=== PATIENT | male | born 1960 | race Caucasian/White ===

== ENCOUNTER → 2016-11-08 | Day surgery (SDC) | payer OTHER ==
[2016-11-04 11:57] VITALS: BMI 33.7
[~2016-11-08] MED LIST: LIDOCAINE 2% INJ 20 MG/ML (20 ML MDV) ONE; MIDAZOLAM 2 MG/2 ML VIAL IV ONE; MIDAZOLAM 2 MG/2 ML VIAL ONE; SODIUM CHLORIDE 0.9% 1,000 ML IV SCH; ceFAZolin 2 GM in SODIUM CHLORIDE 0.9% 100 ML IVPB ONE
[2016-11-08 11:58] VITALS: RESP 18
--- NOTE | 2016-11-08 14:21 | P.PCN ---
Preoperative Diagnosis: Loop monitor implant Primary physicians: Jigsawyer: Dr. Deluca Indication: Sick sinus syndrome, atrial fibrillation Patient was brought to the EP lab in a fasting state. Written informed consent was obtained prior to the procedure. The left pectoral area was prepped and draped per protocol. Intravenous antibiotic was administered preoperatively. A subcutaneous Loop monitor was implanted successfully and the wound was closed per protocol. The device was programmed to detect significant fina- arrhythmic and tachy-arrhythmic events, per protocol. Device and programming details: A. fib and sick sinus syndrome programming Patient underwent EP procedure under conscious sedation/moderate sedation, monitoring of the level of consciousness and physiologic parameters including but not limited to vital signs and oxygenation. Patient tolerated the procedure well without any acute complications. 0.5 mg Versed, 2 g Kefzol Start time: 1354 Stop time: 1404 Postoperative Diagnosis: Procedure(s) Performed: Implants: Condition: stable Disposition: same day Indications for Procedure: Operative Findings: Description of Procedure:
[2016-11-08 14:58] VITALS: BP 142/72; PULSE 45; TEMP 97.8
--- NOTE | 2016-11-08 15:03 | LTR ---
November 08, 2016 RE: Primo Forrest Dear Dr. Magallanes; I had the pleasure of seeing Mr. Primo Forrest in electrophysiology followup. As you know, Mr. Forrest has sick sinus syndrome as well as atrial fibrillation and has bradycardia at rest but minimal symptoms. He underwent a loop monitor implantation so I could get an assessment of his atrial fibrillation burden as well as watch for any significant bradycardia in the future. He is not on any AV alicia blocking drugs at this time and I will continue to follow him with you and myself. Thank you for entrusting me with the care of your patient. Warm regards. Sincerely, EZRA ERICKSON MD
== END | disposition home or self-care (01) ==
LOC: CATHEP 11:33
PROVIDERS: ATTEND Internal Medicine Clinical Cardiac Electrophysiology
DX: I48.0 Paroxysmal atrial fibrillation (principal); I49.5 Sick sinus syndrome; I10 Essential (primary) hypertension; I51.7 Cardiomegaly; E78.5 Hyperlipidemia, unspecified; I42.0 Dilated cardiomyopathy; Z82.49 Family history of ischemic heart disease and other diseases of the circulatory system; Z79.01 Long term (current) use of anticoagulants; Z79.899 Other long term (current) drug therapy; Z87.891 Personal history of nicotine dependence
CPT/HCPCS: 33282; 99152; C1764; J2250; J0690

== ENCOUNTER → 2016-12-10 | Outpatient (CLI) | payer OTHER ==
[2016-12-10 09:34] LABS: CH 31.3; CHCM 35.1; HCT 43.4 % (39.0-53.0); HDW 2.88; MCH 30.7 pg (25.0-35.0); MCHC 34.5 g/dL (31.0-37.0); MCV 89.1 fL (80.0-100.0); Mean Platelet Volume 6.8; RBC 4.87 m/uL (4.30-5.90); RDW 14.1 % (11.5-15.5)
[2016-12-10 09:37] LABS: Appearance,Urine Clear (Clear); Bilirubin,Urine Negative (Negative); Glucose,Urine (UA) Negative (Negative); Ketones,Urine Negative (Negative); Leukocyte Esterase,Urine Negative (Negative); Nitrite,Urine Negative (Negative); PH, Urine 5.5 (5.0-8.0); Protein,Urine Negative (Negative); UA Billing (MACRO vs. MICRO) CHEM; Urobilinogen,Urine <2.0 mg/dL (<2.0)
[2016-12-10 09:49] LABS: ALT 44 U/L (21-72); AST 24 U/L (17-59); Alkaline Phosphatase 81 U/L (38-126); Anion Gap 8 mmol/L; Blood Urea Nitrogen 17 mg/dL (9-20); Calcium 9.4 mg/dL (8.4-10.2); Carbon Dioxide 28 mmol/L (22-30); Chloride 107 mmol/L (98-107); Cholesterol 174 mg/dL (<200); Glucose 95 mg/dL (74-99); HDL Cholesterol 51 mg/dL (40-60); Non-African American GFR(MDRD) >60 (>60 ml/min/1.73 sqM); Potassium 4.8 mmol/L (3.5-5.1); Sodium 143 mmol/L (137-145); Total Protein 7.3 g/dL (6.3-8.2); Triglycerides 188 mg/dL (<150)
[2016-12-10 10:19] LABS: Prostate Specific Antigen 0.98 ng/mL (0.00-4.00)
[2016-12-10 10:27] LABS: Hemoglobin A1C 5.8 % (4.2-6.1)
== END | disposition home or self-care (01) ==
LOC: LABWHC1 09:16
PROVIDERS: ATTEND Family Medicine
DX: Z00.00 Encounter for general adult medical examination without abnormal findings (principal)
CPT/HCPCS: 36415; 80053; 80061; 81003; 83036; 84153; 84443; 85027

== ENCOUNTER → 2018-12-13 | Outpatient (CLI) | payer OTHER ==
[2018-12-13 17:45] LABS: African American GFR (CKD) 107.2 (60.0-200.0); Anion Gap 5.5 mmol/L (4.00-12.00); BUN/Creat Ratio 23.33 Ratio (12.00-20.00); Calcium 9.1 mg/dL (8.7-10.3); Carbon Dioxide 27.5 mmol/L (21.6-31.8); Potassium 4.3 mmol/L (3.5-5.5)
== END | disposition home or self-care (01) ==
LOC: LABWHC1 09:29
PROVIDERS: ATTEND Family Medicine
DX: I10 Essential (primary) hypertension (principal); E78.5 Hyperlipidemia, unspecified
CPT/HCPCS: 36415; 80048; 84450; 84460

== ENCOUNTER → 2019-01-17 | Outpatient (CLI) | payer OTHER ==
[2019-01-17 10:58] LABS: Appearance,Urine Clear (Clear); Bilirubin,Urine Negative (Negative); Blood,Urine Negative (Negative); Color,Urine Yellow; Glucose,Urine (UA) Negative (Negative); Ketones,Urine Negative (Negative); Leukocyte Esterase,Urine Negative (Negative); Nitrite,Urine Negative (Negative); PH, Urine 5.5 (5.0-8.0); Protein,Urine Negative (Negative); Specific Gravity,Urine 1.018 (1.001-1.035); Urobilinogen,Urine <2.0 mg/dL (<2.0)
[2019-01-17 11:36] LABS: HCT 44.9 % (39.0-53.0); HGB 14.9 gm/dL (13.0-17.5); MCH 30.7 pg (25.0-35.0); MCHC 33.2 g/dL (31.0-37.0); MCV 92.4 fL (80.0-100.0); Mean Platelet Volume 6.5; Platelet Count 218 k/uL (150-450); RBC 4.86 m/uL (4.30-5.90); RDW 13.4 % (11.5-15.5)
[2019-01-17 15:56] LABS: African American GFR (CKD) 94.4 (60.0-200.0); Albumin 4.1 g/dL (3.80-4.90); Albumin/Globulin Ratio 1.78 (1.60-3.17); Anion Gap 11.5 mmol/L (4.00-12.00); Calcium 8.7 mg/dL (8.7-10.3); Carbon Dioxide 23.5 mmol/L (21.6-31.8); Globulin 2.3 g/dL (1.6-3.3); LDL Cholesterol,Calculated 86.2 mg/dL (0.0-131.0); Potassium 4.4 mmol/L (3.5-5.5); Total Bilirubin 0.9 mg/dL (0.3-1.2); Total Protein 6.4 g/dL (6.2-8.2); VLDL Calculation 16.8 mg/dL (5.00-40.00)
[2019-01-17 17:29] LABS: Hemoglobin A1C 5.6 % (4.0-6.0)
== END | disposition home or self-care (01) ==
LOC: LABWHC1 10:10
PROVIDERS: ATTEND Family Medicine
DX: Z00.00 Encounter for general adult medical examination without abnormal findings (principal); E66.9 Obesity, unspecified
CPT/HCPCS: 36415; 80053; 80061; 81003; 83036; 84153; 84439; 84443; 85027

== ENCOUNTER 2022-06-28 08:23 | Inpatient (IN) | payer OTHER ==
[2022-06-28 16:26] LABS: Basophils % (A) 0 %; Eosinophils # (A) 0.1 k/uL (0-0.7); Eosinophils % (A) 1 %; HCT 46.4 % (39.0-53.0); HGB 15.3 gm/dL (13.0-17.5); Lymphocytes # (A) 2.6 k/uL (1.0-4.8); Lymphocytes % (A) 26 %; MCH 31.7 pg (25.0-35.0); Mean Platelet Volume 7.7; Monocytes # (A) 0.7 k/uL (0-1.0); Monocytes % (A) 7 %; Neutrophils # (A) 6.5 k/uL (1.3-7.7); Neutrophils % (A) 64 %; Platelet Count 240 k/uL (150-450); RBC 4.83 m/uL (4.30-5.90); RDW 14.5 % (11.5-15.5); WBC 10.3 k/uL (3.8-10.6)
[2022-06-28 16:35] LABS: Calcium 9.2 mg/dL (8.4-10.2); Magnesium 2.2 mg/dL (1.6-2.3); Potassium 4.4 mmol/L (3.5-5.1)
[2022-06-28] MEDS: RIVAROXABAN 20 MG TAB PO SCH (21:21)
[2022-06-28] MEDS: ATORVASTATIN 40 MG TAB PO SCH (21:21)
[2022-06-28] MEDS: SACUBITRIL/VALSARTAN 24 MG-26 MG TABLET PO SCH (21:21)
[2022-06-29] MEDS: ATORVASTATIN 40 MG TAB PO SCH (07:51)
[2022-06-29] MEDS: SACUBITRIL/VALSARTAN 24 MG-26 MG TABLET PO SCH ×2 (07:51→21:26)
[2022-06-29 08:04] LABS: African American GFR (CKD) 78 (>60 ml/min/1.73 sqM); Anion Gap 2 mmol/L; Blood Urea Nitrogen 22 mg/dL (9-20); Calcium 8.1 mg/dL (8.4-10.2); Carbon Dioxide 33 mmol/L (22-30); Chloride 103 mmol/L (98-107); Glucose 104 mg/dL (74-99); Non-African American GFR(CKD) 67 (>60 ml/min/1.73 sqM); Potassium 3.5 mmol/L (3.5-5.1); Sodium 138 mmol/L (137-145)
[2022-06-29] MEDS: FUROSEMIDE 20 MG TAB PO SCH (08:51)
[2022-06-29] MEDS: SPIRONOLACTONE 25 MG TAB PO SCH (08:52)
[2022-06-29] MEDS ORDERED: FUROSEMIDE 40 MG TAB PO SCH (09:00)
[2022-06-29] MEDS ORDERED: METOPROLOL SUCCINATE (ER) 25 MG TAB.ER.24H PO SCH (12:00)
[2022-06-29] MEDS: SODIUM CHLORIDE 0.9% 1,000 ML IV SCH (13:35)
[2022-06-29] MEDS ORDERED: SODIUM CHLORIDE 0.9% 500 ML 500 ML IV ONE (13:56)
[2022-06-29] MEDS ORDERED: HEPARIN SODIUM,PORCINE 5,000 UNIT/ML 1 ML VIAL ONE (15:37)
[2022-06-29] MEDS ORDERED: PHENYLEPHRINE-0.9% NACL SYG 1,000 MCG/10 ML SYRINGE ONE (15:37)
[2022-06-29] MEDS ORDERED: PROPOFOL 10 MG/ML 20 ML VIAL IV ONE (15:37)
[2022-06-29] MEDS ORDERED: LIDOCAINE 2% INJ 20 MG/ML (2 ML VIAL) ONE (15:37)
--- NOTE | 2022-06-29 16:18 | P.PN ---
Subjective Progress note on D1 Tuesday Patient was admitted with increasing shortness of breath orthopnea PND He was started on ENTRESTO 24/26 mg by mouth twice daily along with beta blockers Lasix was held today Labs Normal white count 10,000, hemoglobin 15, platelet count 240,000 Sodium 141, potassium 4.4 BUN 28 and creatinine 1.14 Magnesium 2.2 On examination was still JVD in the sitting position Breath sounds reduced bilaterally with crackles at the bases Heart sounds S1 and S2 are soft no clinical S3 gallop Bilateral lower extremity edema Impression Biventricular failure class III, acute systolic failure Severe LV dysfunction, systolic Severe RV dysfunction, systolic Persistent atrial fibrillation with RVR Hypertension on lisinopril previously Lisinopril has been on hold over the weekend Patient admitted for heart failure management and indecision of ENTRESTO Plan Continue ENTRESTO Hold Lasix for today upon incision of ENTRESTO, continue beta blockers BMP and magnesium and TSH tomorrow Continue xarelto Continue atorvastatin Objective - Vital Signs Vital signs: Vital Signs Temp 98 F 06/29/22 13:57 Pulse 94 06/29/22 16:08 Resp 16 06/29/22 16:08 BP 109/72 06/29/22 16:08 Pulse Ox 97 06/29/22 16:08 FiO2 Intake & Output 06/28/22 06/29/22 06/29/22 18:59 06:59 18:59 Intake Total 180 50 Balance 180 50 Weight 112.829 kg 113.6 kg 113.6 kg Intake: IV 50 Oral 180 Other: Voiding Method Toilet # Voids 1 1 - Labs CBC & Chem 7: 06/28/22 16:00 06/29/22 06:18 Labs: Abnormal Lab Results - Last 24 Hours (Table) 06/28/22 06/29/22 Range/Units 16:00 06:18 Carbon Dioxide 33 H (22-30) mmol/L BUN 28 H 22 H (9-20) mg/dL Glucose 104 H (74-99) mg/dL Calcium 8.1 L (8.4-10.2) mg/dL
--- NOTE | 2022-06-29 16:26 | P.PN ---
Progress Note - Text This morning patient is doing better He feels his orthopnea had improved and he was able to lie flat in bed no comfortably after receiving 2 doses of ENTRESTO His blood pressure has been stable No chest discomfort no dizziness lightheadedness He ambulates to the bathroom without any problems His lower extremity edema persists On examination, but pressure 112/78 mmHg pulse rate elevated irregular Mild JVD upon sitting Breath sounds are reduced bilaterally, crackles at the bases Normal S1 normal S2 no murmurs Bilateral lower extremity edema access Labs are reviewed After receiving 2 doses of ENTRESTO his potassium is 3.5, bicarb 33 BUN 22 and creatinine 1.16 Magnesium 2.0 and TSH 1.13, normal Impression Severe biventricular cardiomyopathy with acute systolic dysfunction acute exacerbation of CHF Previously his LV function was normal Now his LV function is severely reduced at less than 20% with biventricular enlargement Persistent atrial fibrillation with RVR, normal TSH History of hypertension Suggest Acute systolic heart failure likely a combination of A. fib with RVR along with recent Coumadin infection No angina like symptoms Hypertension Acute congestive heart failure improving on ENTRESTO Plan Continue ENTRESTO 24/26 mg by mouth twice daily Continue beta blockers at a higher dose of 50 mg daily Add spironolactone 25 mg by mouth daily Continue Xarelto 20 mg by mouth daily Continue atorvastatin Lasix 20 mg by mouth daily External defibrillator for the next 4 months for primary prevention of sudden cardiac given the severity and the QT of heart failure and biventricular LV dysfunction Electrical cardioversion later today Continue xarelto Maximize beta blockers
--- NOTE | 2022-06-29 16:32 | P.EPPROC ---
- EP Procedure Note Electrophysiology Procedure Note: Diagnosis Persistent A. fib with RVR Acute LV and RV systolic dysfunction with acute heart failure Recent COVID infection Details Successful electrical cardioversion with 200 J biphasic shock to sinus rhythm Patient also received 5000 units IV heparin prior to the procedure He is also on xarelto Plan Continue beta blockers a higher dose Continue ENTRESTO Continue diuretics Continue Xarelto In case of recurrence, consider dofetilide In my opinion his acute systolic heart failure with biventricular severe LV dysfunction is a culmination of recent conversion of paroxysmal atrial fibrillation to persistent A. fib with RVR followed by Covid infection In the future we will evaluate his coronary arteries too
[2022-06-29] MEDS ORDERED: METOPROLOL SUCCINATE (ER) 25 MG TAB.ER.24H PO STA (16:51)
[2022-06-29] MEDS: RIVAROXABAN 20 MG TAB PO SCH (21:26)
[2022-06-30] MEDS: SPIRONOLACTONE 25 MG TAB PO SCH (08:55)
[2022-06-30] MEDS: ATORVASTATIN 40 MG TAB PO SCH (08:55)
[2022-06-30] MEDS: FUROSEMIDE 20 MG TAB PO SCH (08:55)
[2022-06-30] MEDS: SACUBITRIL/VALSARTAN 24 MG-26 MG TABLET PO SCH ×2 (08:56→21:42)
[2022-06-30 09:10] LABS: Calcium 8.7 mg/dL (8.4-10.2); Potassium 4.4 mmol/L (3.5-5.1)
[2022-06-30] MEDS ORDERED: METOPROLOL SUCCINATE (ER) 50 MG TAB.ER.24H PO SCH (11:00)
[2022-06-30] MEDS: SODIUM CHLORIDE 0.9% 1,000 ML IV SCH (11:27)
[2022-06-30] MEDS: METOPROLOL SUCCINATE (ER) 50 MG TAB.ER.24H PO SCH (13:58)
[2022-06-30] MEDS: RIVAROXABAN 20 MG TAB PO SCH (21:42)
[2022-06-30] MEDS ORDERED: LORATADINE-PSEUDOEPH 5-120 MG 1 EACH TAB.ER.12H PO PRN (21:46)
[2022-07-01 08:15] LABS: Calcium 8.6 mg/dL (8.4-10.2); Magnesium 2.1 mg/dL (1.6-2.3); Potassium 4.4 mmol/L (3.5-5.1)
[2022-07-01] MEDS ORDERED: LORATADINE 10 MG TAB PO SCH (09:00)
[2022-07-01] MEDS: SPIRONOLACTONE 25 MG TAB PO SCH (09:09)
[2022-07-01] MEDS: METOPROLOL SUCCINATE (ER) 50 MG TAB.ER.24H PO SCH (09:09)
[2022-07-01] MEDS: SACUBITRIL/VALSARTAN 24 MG-26 MG TABLET PO SCH (09:09)
[2022-07-01] MEDS: ATORVASTATIN 40 MG TAB PO SCH (09:09)
[2022-07-01 12:36] VITALS: BP 122/81; PULSE 76; RESP 18; TEMP 97.5
[2022-07-01] MEDS ORDERED: FUROSEMIDE 10 MG/ML 4 ML VIAL IV STA (13:24)
--- NOTE | 2022-07-01 13:28 | P.PN ---
Progress Note - Text Patient was evaluated on the in the morning as well as later on in the evening He is doing well from a cardiac standpoint His orthopnea and PND of improved significantly He still has lower extremity edema No chest discomfort or dizziness no lightheadedness I started him on a higher dose of ENTRESTO, 2 tablets of 24/26 mg and he yumiko erated well through the day In the evening he received his second higher dose of ENTRESTO and also tolerated well without he problems No dizziness no shortness of breath He remains in sinus rhythm heart rate 7 the 70s he is tolerating metoprolol Heart rates in the 70s, blood pressure 180 78 mmHg normal respirations We mild JVD Bilateral lower extremity edema Clear lungs no rhonchi no crackles Heart sounds are sounds are normal no S3 gallop Impression severe biventricular failure with a dilated LV and RV Severe LV dysfunction ejection fraction less than 20% Admitted for heart failure management and afterload reduction therapy initiated with ENTRESTO The dose of ENTRESTO." The beta eli dose has been doubled He is on spironolactone Lasix is on hold pulmonary watch his BUN/creatinine on ENTRESTO Plan continue ENTRESTO BMP tomorrow Awaiting external ICD vest Discharge planning for tomorrow as long as his electrolytes are normal and he tolerates ENTRESTO
[2022-07-01] MEDS ORDERED: SACUBITRIL/VALSARTAN 24 MG-26 MG TABLET PO SCH (21:00)
== END 2022-07-01 16:44 | disposition home or self-care (01) | DRG 291 ==
LOC: 3SCARD 08:23
PROVIDERS: ADMIT Internal Medicine Clinical Cardiac Electrophysiology; ATTEND Internal Medicine Clinical Cardiac Electrophysiology
PROC: 5A2204Z Restoration of Cardiac Rhythm, Single (ICD-10-PCS; principal; 2022-06-29 14:00)
DX: I11.0 Hypertensive heart disease with heart failure (principal); I50.23 Acute on chronic systolic (congestive) heart failure; I48.19 Other persistent atrial fibrillation; I42.8 Other cardiomyopathies; I50.82 Biventricular heart failure; I08.1 Rheumatic disorders of both mitral and tricuspid valves; E78.5 Hyperlipidemia, unspecified; R00.1 Bradycardia, unspecified; Z86.16 Personal history of COVID-19; F17.210 Nicotine dependence, cigarettes, uncomplicated; Z71.6 Tobacco abuse counseling
CPT/HCPCS: 80048; 83735; 84443; 85025; 92960

== ENCOUNTER 2022-09-21 05:44 | Day surgery (SDC) | payer OTHER ==
[2022-09-15 11:41] VITALS: BMI 33.7
[2022-09-21] MEDS ORDERED: NITROGLYCERIN SL TABS 0.4 MG TAB SUBLINGUAL PRN (06:05)
[2022-09-21] MEDS ORDERED: ALPRAZolam 0.25 MG TAB PO PRN (06:05)
[2022-09-21] MEDS ORDERED: ASPIRIN 325 MG TAB PO STA (06:05)
[2022-09-21] MEDS ORDERED: HEPARIN SODIUM,PORCINE 2,500 UNIT in SODIUM CHLORIDE 0.9% 250 ML IRRIGATION PRN (06:05)
[2022-09-21] MEDS ORDERED: ALPRAZolam 0.5 MG TAB PO PRN (06:05)
[2022-09-21] MEDS ORDERED: HEPARIN SODIUM,PORCINE 10,000 UNIT in SODIUM CHLORIDE 0.9% 1,000 ML IRRIGATION PRN (06:05)
[2022-09-21] MEDS ORDERED: SODIUM CHLORIDE 0.9% 1,000 ML in EMPTY BAG 1 BAG IV SCH (06:05)
[2022-09-21] MEDS ORDERED: ATORVASTATIN 80 MG TAB PO STA (06:05)
[2022-09-21 06:41] LABS: Basophils % (A) 0 %; Eosinophils # (A) 0.2 k/uL (0-0.7); Eosinophils % (A) 2 %; HCT 41.2 % (39.0-53.0); HGB 14.3 gm/dL (13.0-17.5); Lymphocytes # (A) 2.4 k/uL (1.0-4.8); Lymphocytes % (A) 31 %; MCH 31.6 pg (25.0-35.0); MCHC 34.8 g/dL (31.0-37.0); Mean Platelet Volume 6.9; Monocytes # (A) 0.5 k/uL (0-1.0); Monocytes % (A) 7 %; Neutrophils # (A) 4.4 k/uL (1.3-7.7); Neutrophils % (A) 57 %; Platelet Count 230 k/uL (150-450); RBC 4.52 m/uL (4.30-5.90); RDW 14.4 % (11.5-15.5); WBC 7.7 k/uL (3.8-10.6)
[2022-09-21 06:48] VITALS: RESP 16; TEMP 98.7
[2022-09-21 06:55] LABS: African American GFR (CKD) >90 (>60 ml/min/1.73 sqM); Anion Gap 7 mmol/L; Blood Urea Nitrogen 23 mg/dL (9-20); Calcium 9.7 mg/dL (8.4-10.2); Carbon Dioxide 25 mmol/L (22-30); Chloride 106 mmol/L (98-107); Glucose 89 mg/dL (74-99); Non-African American GFR(CKD) 89 (>60 ml/min/1.73 sqM); Potassium 4.8 mmol/L (3.5-5.1); Sodium 138 mmol/L (137-145)
[2022-09-21] MEDS ORDERED: fentaNYL (PF) 50 MCG/1 ML VIAL IV ONE (08:11)
[2022-09-21] MEDS ORDERED: MIDAZOLAM 2 MG/2 ML VIAL IV ONE (08:11)
[2022-09-21] MEDS ORDERED: LIDOCAINE 1% INJ 10MG/ML (5 ML VIAL-PF) SQ ONE (08:12)
[2022-09-21] MEDS ORDERED: VERAPAMIL SYRINGE (5 MG/10 ML) INTRAARTER ONE (08:14)
[2022-09-21] MEDS ORDERED: HEPARIN SODIUM 1,000 UN/ML (10ML VL) IV ONE (08:16)
--- NOTE | 2022-09-21 08:28 | P.CARDCATH ---
Description of Procedure: PROCEDURES PERFORMED: Left heart catheterization, bilateral coronary angiography INDICATION: Cardiomyopathy CONSENT:I have discussed the risks, benefits and alternative therapies for the above-mentioned procedure and for both sedation/analgesia as well as necessary blood product administration, if indicated, as they pertain to this patient. The patient has indicated understanding and acceptance of the risks and procedures discussed. PROCEDURE: After the risks, benefits and alternatives of the above mentioned procedure explained in detail with the patient, informed consent was obtained. Patient was taken to the catheterization lab and prepped and draped in usual fashion. 1% lidocaine was used to anesthetize the right radial artery. A 6- Polish sheath was placed in the right radial artery using modified Seldinger technique. Left coronary angiography was performed with a 5-Polish JL 3.5 catheter and right coronary angiography was performed with a 5-Polish JR5 catheter in various views. A 5-Polish FR5 catheter was inserted into the left ventricle and pressure measurements were obtained. The right radial sheath was removed and a TR band was placed with hemostasis achieved. The patient tolerated the procedure well. Patient was transported back to the post catheterization holding area in stable condition. Conscious Sedation: Patient was monitored under the direct supervision of myself for conscious sedation using Versed and fentanyl for a total duration of 13 minutes HEMODYNAMICS: Aorta: 116/54 LV: 117/4, LVEDP 10 SELECTIVE CORONARY ARTERIOGRAPHY: LEFT MAIN: The left main is a large caliber vessel which trifurcates into the LAD, ramus and circumflex. There is no significant stenosis. LEFT ANTERIOR DESCENDING CORONARY ARTERY: LAD is a large caliber vessel which wraps around to the apex. There are mild luminal irregularities of the proximal and mid LAD with 10-20% stenosis. RAMUS INTERMEDIUS: The ramus is a small caliber vessel with no significant stenosis. LEFT CIRCUMFLEX CORONARY ARTERY: Left circumflex is a moderate caliber vessel without significant stenosis. RIGHT CORONARY ARTERY: The right coronary artery is a large caliber vessel which gives off a PDA and PLV branch and is the dominant vessel. There is no significant stenosis. FINAL IMPRESSION: 1. Relatively normal coronary arteries other than mild luminal irregularities of the LAD. 2. Normal left sided filling pressures PLAN: 1. Aggressive risk factor modification per most recent ACC/AHA guidelines. 2. Follow-up in the office in 1-2 weeks.
[2022-09-21] MEDS ORDERED: IOPAMIDOL-370 100ML BTL INJ ONE (08:35)
[2022-09-21 10:07] VITALS: BP 104/56; PULSE 50
== END 2022-09-21 11:28 | disposition home or self-care (01) ==
LOC: CATHCVL 05:44
PROVIDERS: ATTEND Internal Medicine
DX: I42.0 Dilated cardiomyopathy (principal); I10 Essential (primary) hypertension; E78.5 Hyperlipidemia, unspecified; F17.210 Nicotine dependence, cigarettes, uncomplicated; Z82.49 Family history of ischemic heart disease and other diseases of the circulatory system; Z79.899 Other long term (current) drug therapy
CPT/HCPCS: 93458; 80048; 85025; C1769; C1894; J2250; J2001; J1644; Q9967; J3010

== ENCOUNTER 2022-10-25 08:07 | Day surgery (SDC) | payer OTHER ==
[~2022-10-25 08:07] MED LIST changes: +LACTATED RINGERS 1,000 ML IV SCH; -LIDOCAINE 2% INJ 20 MG/ML (20 ML MDV) ONE; -MIDAZOLAM 2 MG/2 ML VIAL IV ONE; -MIDAZOLAM 2 MG/2 ML VIAL ONE; +ceFAZolin 1 GM in SODIUM CHLORIDE 0.9% IRRIG BTL 250 ML IRRIGATION PRN; -ceFAZolin 2 GM in SODIUM CHLORIDE 0.9% 100 ML IVPB ONE
[2022-10-25] MEDS ORDERED: SODIUM CHLORIDE 0.9% 500 ML 500 ML IV ONE (08:19)
[2022-10-25 08:28] VITALS: RESP 16; TEMP 97.9
[2022-10-25 08:33] LABS: Basophils % (A) 0 %; Eosinophils # (A) 0.1 k/uL (0-0.7); Eosinophils % (A) 1 %; HCT 44.3 % (39.0-53.0); HGB 14.8 gm/dL (13.0-17.5); Lymphocytes # (A) 2.6 k/uL (1.0-4.8); Lymphocytes % (A) 34 %; MCHC 33.4 g/dL (31.0-37.0); MCV 95.8 fL (80.0-100.0); Mean Platelet Volume 6.8; Monocytes # (A) 0.4 k/uL (0-1.0); Monocytes % (A) 6 %; Neutrophils # (A) 4.2 k/uL (1.3-7.7); Neutrophils % (A) 56 %; Platelet Count 244 k/uL (150-450); RBC 4.63 m/uL (4.30-5.90); RDW 14.4 % (11.5-15.5); WBC 7.5 k/uL (3.8-10.6)
[2022-10-25 08:50] LABS: African American GFR (CKD) >90 (>60 ml/min/1.73 sqM); Anion Gap 8 mmol/L; Blood Urea Nitrogen 17 mg/dL (9-20); Calcium 9.3 mg/dL (8.4-10.2); Carbon Dioxide 29 mmol/L (22-30); Chloride 102 mmol/L (98-107); Glucose 104 mg/dL (74-99); Non-African American GFR(CKD) 85 (>60 ml/min/1.73 sqM); Potassium 4.5 mmol/L (3.5-5.1); Sodium 139 mmol/L (137-145)
[2022-10-25] MEDS ORDERED: MIDAZOLAM 2 MG/2 ML VIAL ONE (09:23)
[2022-10-25] MEDS ORDERED: PROPOFOL 10 MG/ML 20 ML VIAL IV ONE (09:23)
[2022-10-25] MEDS ORDERED: fentaNYL (PF) 50 MCG/ML 2 ML AMP ONE (09:23)
[2022-10-25] MEDS ORDERED: LIDOCAINE 1% INJ 10MG/ML (20 ML MDV) ONE (09:43)
[2022-10-25] MEDS ORDERED: IOPAMIDOL-250 100ML BTL IV ONE (09:48)
[2022-10-25] MEDS ORDERED: LIDOCAINE 1% INJ 10MG/ML (30 ML VIAL-PF) SQ ONE (10:20)
[2022-10-25] MEDS ORDERED: LIDOCAINE 1% INJ 10MG/ML (20 ML MDV) SQ ONE (10:22)
--- NOTE | 2022-10-25 11:53 | P.EPPROC ---
- EP Procedure Note Electrophysiology Procedure Note: Diagnosis Post viral Cardiomyopathy, chronic, nonischemic Normal coronary arteries, on maximally tolerated medications Systolic CHF class II on medical treatment, Sinus Bradycardia, on guideline directed therapy, limiting beta eli dose that is tolerated Procedure: Dual-chamber ICD implantation for management of risk of sudden cardiac /bradycardia/ to further maximize beta blockers therapy for severe nonischemic cardio myopathy Result: Dual chamber ICD implantation, Atrial lead: Medtronic 52 cm active fix lead in the right atrial appendage, P waves 1.4 mV, pacing threshold 1 V at 0.4 ms and pacing impedance 665 ohms RV ICD lead: Single coil lead screwed in the RV septum/W paced pattern noted, R waves 11.6 below, pacing threshold 0.8 V at 0.4 ms, pacing impedance 532 ohms Procedure details: Patient was brought to the EP lab in a fasting state. Written informed consent was obtained prior to the procedure. Options, pros and cons, benefits and risks and complications discussed with patient in detail prior to the procedure (shared decision making). Importance of continuing medical treatment emphasized. Alternatives discussed. Patient would like to proceed with dual-chamber ICD implant. Left upper extremity venogram performed. 15 mL IV dye injected in the left arm. Patent axillary/subclavian vein The left pectoral area was prepped and draped as a protocol. IV antibiotics administered 1% lidocaine was used for local anesthesia. A 4 cm incision was m mary lou parallel to the deltopectoral groove, about 1.5 cm medial to it. The incision was carried down to the level of the pectoralis muscle and the subfascial pocket was made. Hemostasis was assured. The axillary vein access was obtained. Appropriately sized into to see sheaths were placed. ICD lead implanted in the right ventricle and screwed in. ICD lead tested for threshold, sensing, impedances and tested with high output pacing for diaphragmatic stimulation Atrial lead placed in the right atrial appendage and tested for threshold, sensing, impedance, and tested with high output pacing. Phrenic nerve stimulation Lead secured to the underlying transverse muscle after removing sheaths . Pocket irrigated with antibiotic solution Leads connected to the biventricular ICD generator. Wound closed in 3 layers and dressed per protocol Defibrillation level testing performed Shock and T wave protocol to induce ventricular fibrillation. This was adequately and appropriately detected at least sensitivity 10 J shock failed. 20 J shock was successfully with a type II conversion A 25 J shock was successfully defibrillated the patient, without any dropouts, shocking impedance 67 ohms, charge time 4.9 seconds, delivered MG 25 J Dual ICD interrogated and programmed. Appropriate pacing parameters, antitachycardia therapies with antitachycardia pacing cardioversion defibrillations programmed. Patient tolerated the procedure well without any acute complications. See scanned device report in EMR for lead details Plan Further maximization of beta eli therapy
--- NOTE | 2022-10-25 12:08 | P.EPPROC ---
- EP Procedure Note Electrophysiology Procedure Note: Procedure: Loop explant under sedation and local anesthesia. Diagnosis: Loop monitor at [facility] Patient was brought to the EP lab in a fasting state. Written informed consent was obtained prior to the procedure. The subcutaneous device was successfully explanted under local anesthesia. Preoperative antibiotics were administered. The wound was closed in layers and dressed per protocol. Result: Successful loop monitor explantation.
[2022-10-25] MEDS ORDERED: ACETAMINOPHEN TAB 325 MG TAB PO PRN (12:16)
[2022-10-25] MEDS ORDERED: METOPROLOL SUCCINATE (ER) 50 MG TAB.ER.24H PO SCH (12:30)
--- NOTE | 2022-10-25 12:36 | P.EPPROC ---
- EP Procedure Note Electrophysiology Procedure Note: Discharge date note Patient underwent dual-chamber ICD implantation for severe nonischemic cardio myopathy that has not improved an ejection fraction is still severely reduced despite optimal medical treatment, maximally tolerated Now he has developed sinus bradycardia and he cannot increase the dose of beta blockers any further Today her dual-chamber ICD was implanted successfully His DFT is high at 25 J The subcutaneous loop monitor was explanted Plan Increase metoprolol succinate to 50 g by mouth daily and after 2-3 weeks further maximization of beta eli therapy since he has a dual-chamber ICD providing atrial pacing Continue all of the heart failure medications
[2022-10-25] MEDS ORDERED: ACETAMINOPHEN TAB 500 MG TAB PO ONE (13:23)
[2022-10-25 15:16] VITALS: BP 119/67; PULSE 67
--- NOTE | 2022-10-25 15:40 | XR ---
EXAMINATION TYPE: XR chest 1V portable DATE OF EXAM: 10/25/2022 Comparison: None Clinical History: 62-year-old male pacemaker, Lead placement check Findings: Left anterior chest wall AICD generator with right ventricular leads. No appreciable pneumothorax. He art borderline enlarged. Mild interstitial prominence may in part be technical due to large patient b eddie habitus. No milton consolidation or pleural effusion seen. Impression: Borderline cardiomegaly. Left anterior chest wall AICD generator with right atrial and right ventricu lar leads. No appreciable pneumothorax.
--- NOTE | 2022-10-25 18:46 | P.PRLE ---
RE: Primo Forrest Dear Dr. Elpidio Tillman underwent dual-chamber ICD implantation for severe nonischemic cardio myopathy that has not improved despite maximally tolerated heart failure medical therapy As expected, he had a high defibrillation threshold 25 J I will now increase the dose of beta blockers further to 50 mrem by mouth daily and hopefully further maximize this in the future by providing atrial pacing via the dual-chamber ICD Thank you for entrusting me with the care of the patient Warm regards Sincerely Kashmir Gonzalez
== END 2022-10-25 16:02 | disposition home or self-care (01) ==
LOC: CATHEP 08:07
PROVIDERS: ATTEND Internal Medicine Clinical Cardiac Electrophysiology
DX: I42.8 Other cardiomyopathies (principal); I11.0 Hypertensive heart disease with heart failure; I50.20 Unspecified systolic (congestive) heart failure; I48.0 Paroxysmal atrial fibrillation; E78.5 Hyperlipidemia, unspecified; Z79.01 Long term (current) use of anticoagulants; Z79.899 Other long term (current) drug therapy
CPT/HCPCS: 33249; 33286; 93641; 80048; 85025; 71045; C1769 ×3; C1721; C1892 ×2; C1898; C1895; J2250; J0690; J2001 ×2; J3010; J2704; Q9966

== ENCOUNTER → 2023-09-03 | Outpatient (CLI) | payer OTHER ==
[2023-09-03 13:09] LABS: HCT 46.3 % (39.6-50.0); HGB 15.5 g/dL (13.0-17.0); MCHC 33.5 g/dL (32.0-37.0); MCV 95.7 FL (80.0-97.0); Mean Platelet Volume 9.6 FL (9.5-12.2); NRBC Per 100 WBC 0 X 10*3/uL (0.00-0.01); Platelet Count 208 X 10*3/uL (140-440); RBC 4.84 X 10*6/uL (4.40-5.60); RDW 13.1 % (11.5-14.5); WBC 8.89 X 10*3/uL (4.50-10.00)
[2023-09-03 13:15] LABS: Blood Urea Nitrogen 18.8 mg/dL (9.0-27.0); Carbon Dioxide 26.8 mmol/L (21.6-31.8); Chloride 103 mmol/L (96-109); Potassium 4.5 mmol/L (3.5-5.5); Sodium 138 mmol/L (135-145)
== END | disposition home or self-care (01) ==
LOC: LABPAT 08:46
PROVIDERS: ATTEND Internal Medicine Clinical Cardiac Electrophysiology
DX: Z01.812 Encounter for preprocedural laboratory examination (principal); I48.19 Other persistent atrial fibrillation; I50.9 Heart failure, unspecified; I42.9 Cardiomyopathy, unspecified
CPT/HCPCS: 80051; 82565; 84520; 85027

== ENCOUNTER 2023-09-08 08:14 | Day surgery (SDC) | payer OTHER ==
[2023-09-08] MEDS: SODIUM CHLORIDE 0.9% 1,000 ML IV ONE (08:28)
[2023-09-08 08:57] VITALS: RESP 16
[2023-09-08] MEDS ORDERED: PHENYLEPHRINE-0.9% NACL SYG 1,000 MCG/10 ML SYRINGE ONE (10:18)
[2023-09-08] MEDS ORDERED: PROPOFOL 10 MG/ML 20 ML VIAL IV ONE (10:18)
[2023-09-08] MEDS ORDERED: MIDAZOLAM 2 MG/2 ML VIAL ONE (10:18)
[2023-09-08] MEDS ORDERED: LIDOCAINE 1% INJ 10MG/ML (20 ML MDV) ONE ×2 (10:18→10:49)
[2023-09-08] MEDS ORDERED: fentaNYL (PF) 50 MCG/ML 2 ML AMP ONE (10:18)
[2023-09-08] MEDS ORDERED: SUCCINYLCHOLINE CHLORIDE 200 MG/10 ML VIAL IV ONE (10:18)
[2023-09-08] MEDS ORDERED: PHENYLEPHRINE 10 MG/ML VIAL ONE (10:18)
[2023-09-08] MEDS ORDERED: HEPARIN SODIUM,PORCINE 10,000 UNIT/ML 1 ML VIAL ONE (10:18)
--- NOTE | 2023-09-08 10:32 | P.HPCAR ---
History of Present Illness This is Dr. Gonzalez dictating an H/P on this patient The patient was interviewed and examined IMPRESSION / ASSESSMENT: 62-year-old male patient with nonischemic, postviral cardiomyopathy with a history of atrial fibrillation Now presents with persistent atrial fibrillation despite heart failure management History of hypertension and dyslipidemia Stable chronic congestive heart failure class II PLAN: Proceed with A-fib ablation Continue anticoagulation heart failure medications HPI Patient remains in A-fib with mild RVR despite medical treatment His main symptom is fatigue but he continues to remain active is able to climb a flight of stairs comfortably No orthopnea PND No loss of consciousness No fever chills cough expectoration recently ROS: No fever chills or rigors, no cough, phlegm or expectoration, no nausea, vomiting or diarrhea, no hematuria, dysuria, no musculoskeletal complaints, no strokes or seizures, no skin lesions. EXAMINATION: Blood pressure 125/80 mmHg heart rate 106 beats a minute No JVD no hepatojugular reflux Breath sounds are clear No lower extremity edema Heart sounds are irregular no murmurs REVIEW OF LABS, ECG & MEDICAL DATA Spironolactone Entresto Xarelto metoprolol and atorvastatin transfer to Physical Exam Vitals: Vital Signs Temp Pulse Resp BP Pulse Ox 09/08/23 08:40 97.8 F 106 H 16 125/80 97 Past Medical History Past Medical History: Atrial Fibrillation, Hyperlipidemia, Hypertension Additional Past Medical History / Comment(s): HAS PREVIOUS EPISODE OF AFIB see dr gonzalez's H & P. bruises easily. History of Any Multi-Drug Resistant Organisms: None Reported Past Surgical History: AICD, Heart Catheterization, Joint Replacement, Pacemaker, Tonsillectomy Additional Past Surgical History / Comment(s): BILATERAL HIP REPLACEMENTS cardioversion 06/2022, dual defibrillator/ pacemaker Past Anesthesia/Blood Transfusion Reactions: No Reported Reaction Additional Past Anesthesia/Blood Transfusion Reaction / Comment(s): no blood tx hx Type of Cardiac Device: Permanent Pacemaker, AICD Device Placement Date:: 10/2022 [place] Smoking Status: Former smoker - Past Family History Mother Family Medical History: No Reported History Father Family Medical History: Myocardial Infarction (SD) Additional Family Medical History / Comment(s): FATAL SD IN HIS 30'S Physical Examination Vital Signs Temp Pulse Resp BP Pulse Ox 09/08/23 08:40 97.8 F 106 H 16 125/80 97 Results Current Medications Generic Name Dose Route Start Last Admin Trade Name Freq PRN Reason Stop Dose Admin Sodium Chloride 1,000 mls @ 20 mls/hr 09/08/23 05:55 Saline 0.9% IV 10/08/23 05:56 .Q24H SHWETHA
[2023-09-08] MEDS: HEPARIN SOD,PORK IN 0.45% NACL 25,000 UNIT in 0.45% NACL 1 250ML.BAG IV ONE (10:40)
[2023-09-08] MEDS: LIDOCAINE 1% INJ 10MG/ML (20 ML MDV) SQ ONE (11:07)
[2023-09-08 11:46] LABS: ALT 41 U/L (4-49); AST 32 U/L (17-59); African American GFR (CKD) 79 (>60 ml/min/1.73 sqM); Alkaline Phosphatase 99 U/L (38-126); Anion Gap 9 mmol/L; Blood Urea Nitrogen 23 mg/dL (9-20); Calcium 8.9 mg/dL (8.4-10.2); Carbon Dioxide 22 mmol/L (22-30); Chloride 110 mmol/L (98-107); Glucose 96 mg/dL (74-99); Non-African American GFR(CKD) 68 (>60 ml/min/1.73 sqM); Potassium 4.4 mmol/L (3.5-5.1); Sodium 141 mmol/L (137-145); Total Bilirubin 0.7 mg/dL (0.2-1.3); Total Protein 7.2 g/dL (6.3-8.2)
[2023-09-08] MEDS: IOPAMIDOL-370 100ML BTL INJ ONE (12:57)
[2023-09-08] MEDS ORDERED: ACETAMINOPHEN TAB 325 MG TAB PO PRN (13:38)
--- NOTE | 2023-09-08 14:00 | P.EPPROC ---
- EP Procedure Note Electrophysiology Procedure Note: PROCEDURE A. fib ablation with PVI, left atrial ablation in the septum and left atrial ablation and the roof DIAGNOSIS Persistent atrial fibrillation, symptomatic, refractory to therapy. Severe cardiomyopathy with class II CHF RESULT No left atrial appendage mass seen on intracardiac echo, severe LV dysfunction, mildly thickened pericardium without effusion Successful A. fib ablation/pulmonary vein isolation of all veins using cryo- ablation Complete entrance block in all 4 veins confirmed Left atrial septal ablation Left atrial roof ablation No evidence for phrenic nerve injury Esophageal deflection YES Electrical cardioversion with a synchronized shock across the chest YES PROCEDURE DETAILS Written informed consent prior to procedure. Patient brought to the EP lab. General anesthesia given. Heparin administered. ACT maintained above 300 seconds Both groins prepped and draped per protocol and venous sheaths placed. Esophagus intubated, circa catheter for temperature monitoring an endoscope for possible esophageal deflection. Phrenic nerve monitoring performed. Esophageal temperature monitoring performed. Esophageal deflection performed if circa catheter overlapping with the balloon or circa temperature less than 27.5C Intracardiac echocardiography performed. Pericardium evaluated. Left atrial appendage evaluated. Left atrium evaluated along with pulmonary veins Transseptal catheterization performed under fluoroscopic guidance and intracar diac echo guidance Cryoablation sheath exchanged, balloon catheter along with achieve catheter placed in the left atrium. Pulmonary veins isolated in the following sequence: Left superior pulmonary vein followed by left inferior pulmonary vein, followed by right inferior pulmonary vein and lastly right superior pulmonary vein. Phrenic nerve stimulation along with capture thresholds within the SVC and right superior pulmonary vein to identify the phrenic nerve proximity to the cryo- balloon. Pulmonary veins isolated and confirmed with entrance and exit block. Phrenic nerve integrity confirmed at the end of the procedure Ablation of the left atrial roof performed with sequential lesions from the left superior to the right superior pulmonary veins. Ablation of the electrograms confirmed Ablation of the left atrial septum performed with cannulation of the inferior branch of the right superior vein to achieve ablation of the posterior septum of the left atrium. Ablation of electrograms confirmed Electrical cardioversion performed for persistence of atrial fibrillation despite successful ablation. Diagnostic catheters for the high right atrium, His bundle, coronary sinus placed. LA and RA pressures recorded RA pressure: 13/8/11 LA pressure: 20/8/15 Diagnostic EP study with coronary sinus pacing and recording Baseline measurements: AH interval 76 ms, HV interval 37 ms Venous sheaths were removed and hemostasis assured with a closure device. Patient extubated and transferred to recovery PROCEDURES PERFORMED Diagnostic EP study CS pacing and recording Left and right transseptal catheterization Catheter the mapping of the tachycardia Intracardiac echocardiography Pulmonary vein isolation with transseptal and comprehensive EPS, [id number] transfer to Left atrial roof line, +[id number] Linear ablation, left atrium, +[id number] Electrical cardioversion with a synchronized shock across the chest [id number]
[2023-09-08] MEDS: ACETAMINOPHEN IV (For NPO) 1,000 MG in EMPTY BAG 1 BAG IVPB ONE (14:06)
[2023-09-08] MEDS: SACUBITRIL/VALSARTAN 49 MG-51 MG TABLET PO SCH (20:48)
[2023-09-08] MEDS: SODIUM CHLORIDE 0.9% 1,000 ML IV SCH (22:17)
[2023-09-09 07:55] VITALS: BP 115/71; PULSE 64; TEMP 97.5
[2023-09-09] MEDS: ATORVASTATIN 40 MG TAB PO SCH (08:43)
[2023-09-09] MEDS: SPIRONOLACTONE 25 MG TAB PO SCH (08:43)
[2023-09-09] MEDS: RIVAROXABAN 20 MG TAB PO SCH (08:43)
[2023-09-09] MEDS: METOPROLOL SUCCINATE (ER) 50 MG TAB.ER.24H PO SCH (08:43)
--- NOTE | 2023-09-09 10:55 | P.DS ---
Providers Expected date of discharge: 09/09/23 Attending physician: Kashmir Gonzalez Primary care physician: [facility] Course: This is a 63-year-old male patient brought into the hospital by Dr. Gonzalez for persistent atrial fibrillation despite heart failure management. Patient also has history of hypertension dyslipidemia, postviral nonischemic cardiomyopathy, stable chronic congestive heart failure class II. Patient underwent A-fib ablation yesterday and has not had any postop complications. He denies having any chest pain or pressure. He states the groin is sore but is soft, no bleeding or hematoma. Telemetry is a sinus rhythm. He states he is breathing easier today. Patient will be discharged home today in stable condition. Patient Condition at Discharge: Stable Plan - Discharge Summary Discharge Rx Participant: No New Discharge Prescriptions: Continue Atorvastatin [Lipitor] 40 mg PO DAILY Multivitamins, Thera [Multivitamin (formulary)] 1 tab PO DAILY Rivaroxaban [Xarelto] 20 mg PO DAILY Sacubitril/Valsartan [Entresto 49 mg-51 mg Tablet] 1 each PO BID #180 tablet Spironolactone 25 mg PO DAILY #90 tab Cholecalciferol [Vitamin D3 (25 Mcg = 1000 Iu)] 25 mcg PO DAILY Metoprolol Succinate (ER) [Toprol XL] 50 mg PO DAILY #90 tab Discharge Medication List Atorvastatin [Lipitor] 40 mg PO DAILY 11/04/16 [History] Multivitamins, Thera [Multivitamin (formulary)] 1 tab PO DAILY 06/28/22 [History] Rivaroxaban [Xarelto] 20 mg PO DAILY 06/28/22 [History] Sacubitril/Valsartan [Entresto 49 mg-51 mg Tablet] 1 each PO BID #180 tablet 07/01/22 [Rx] Spironolactone 25 mg PO DAILY #90 tab 07/01/22 [Rx] Cholecalciferol [Vitamin D3 (25 Mcg = 1000 Iu)] 25 mcg PO DAILY 09/15/22 [History] Metoprolol Succinate (ER) [Toprol XL] 50 mg PO DAILY #90 tab 10/25/22 [Rx] Follow up Appointment(s)/Referral(s): Kashmir Gonzalez MD [STAFF PHYSICIAN] - 09/16/23 11:15 am Activity/Diet/Wound Care/Special Instructions: Post EP study - Ablation instructions 1. Keep access sites dry for 2 days. 2. No heavy lifting or straining for 2 days. 3. Avoid bending the hips repeatedly for 2 days. 4. You may go up and down stairs slowly Call if the following is noted 1. Bleeding, increasing swelling or pain at the access sites. 2. Increasing chest discomfort, especially upon taking a deep breath. 3. Increasing shortness of breath, at rest or with exertion. 4. Undue cough / phlegm 5. Difficulty or pain while swallowing. 6. Pain or change in color in the extremities. 7. Fever, chills, rigors. 8. Increasing headache or neurologic symptoms. 9. Dizziness, fainting, palpitations Continue Xarelto uninterrupted
== END 2023-09-09 11:04 | disposition home or self-care (01) ==
LOC: CATHEP 08:14 → 6NMEDSUR 13:14 → CATHEP 09-09 11:04
PROVIDERS: ATTEND Internal Medicine Clinical Cardiac Electrophysiology
DX: I42.8 Other cardiomyopathies (principal); I11.0 Hypertensive heart disease with heart failure; I50.9 Heart failure, unspecified; E78.5 Hyperlipidemia, unspecified; I48.19 Other persistent atrial fibrillation; Z79.01 Long term (current) use of anticoagulants; Z95.5 Presence of coronary angioplasty implant and graft; Z90.89 Acquired absence of other organs; Z98.890 Other specified postprocedural states; Z79.899 Other long term (current) drug therapy
CPT/HCPCS: 93656; 93657; 86900; 86901; 80053; 86850; C1894 ×2; C1769 ×3; C1760; C1730 ×2; C1759; C1893; C1733; C1766; J0690; J2001; J0131; Q9967; J1644

== ENCOUNTER 2023-09-27 14:39 | Observation (INO) | payer OTHER ==
[2023-09-27 15:27] LABS: Basophils % (A) 0 %; Eosinophils # (A) 0.1 k/uL (0-0.7); Eosinophils % (A) 1 %; HCT 45.2 % (39.0-53.0); HGB 15.1 gm/dL (13.0-17.5); Lymphocytes # (A) 2.3 k/uL (1.0-4.8); Lymphocytes % (A) 18 %; MCH 31.4 pg (25.0-35.0); MCHC 33.4 g/dL (31.0-37.0); MCV 94.1 fL (80.0-100.0); Mean Platelet Volume 7.1; Monocytes # (A) 0.6 k/uL (0-1.0); Monocytes % (A) 5 %; Neutrophils # (A) 9.1 k/uL (1.3-7.7); Neutrophils % (A) 74 %; Platelet Count 221 k/uL (150-450); RBC 4.81 m/uL (4.30-5.90); RDW 12.7 % (11.5-15.5); WBC 12.4 k/uL (3.8-10.6)
[2023-09-27 15:36] LABS: INR 1.5 (<1.2); Partial Thromboplastin Time 35.9 sec (22.0-30.0); Prothrombin Time 15.6 sec (10.0-12.5)
[2023-09-27 15:42] LABS: ALT 46 U/L (4-49); AST 39 U/L (17-59); African American GFR (CKD) >90 (>60 ml/min/1.73 sqM); Albumin 4.8 g/dL (3.5-5.0); Alkaline Phosphatase 103 U/L (38-126); Anion Gap 9 mmol/L; Blood Urea Nitrogen 20 mg/dL (9-20); Calcium 9.9 mg/dL (8.4-10.2); Carbon Dioxide 23 mmol/L (22-30); Chloride 104 mmol/L (98-107); Glucose 98 mg/dL (74-99); Magnesium 1.9 mg/dL (1.6-2.3); Non-African American GFR(CKD) >90 (>60 ml/min/1.73 sqM); Potassium 4.4 mmol/L (3.5-5.1); Sodium 136 mmol/L (137-145); Total Bilirubin 1.1 mg/dL (0.2-1.3); Total Protein 8.3 g/dL (6.3-8.2)
--- NOTE | 2023-09-27 15:45 | ED ---
General Adult HPI - General Chief complaint: Chest Pain Stated complaint: Chest pains Time Seen by Provider: 09/27/23 15:00 Source: patient, RN notes reviewed, old records reviewed Mode of arrival: ambulatory - History of Present Illness Initial comments: This 63-year-old male who presents to the emergency department with a past medical history significant for A-fib and an ejection fraction between 20 and 25%. Patient does have a defibrillator in place. Patient also has a history of high blood pressure and high cholesterol. Patient states today at about 8:00 this morning started having some upper chest discomfort that seem to go into his neck. Patient states he did not notice any difficulty breathing. Patient did not have any recent fever chills or cough. Patient denies any nausea vomiting. Patient denies shortness of breath. Patient denies any back pain. Patient has any abdominal pain. Patient denies any lightheadedness or dizziness. Patient states the pain still exist. Patient states if he is not taking a deep breath it is still there but not quite as bad. - Related Data Home Medications Medication Instructions Recorded Confirmed Atorvastatin [Lipitor] 40 mg PO DAILY 11/04/16 09/27/23 Multivitamins, Thera [Multivitamin 1 tab PO DAILY 06/28/22 09/27/23 (formulary)] Rivaroxaban [Xarelto] 20 mg PO DAILY 06/28/22 09/27/23 Cholecalciferol [Vitamin D3 (25 25 mcg PO DAILY 09/15/22 09/27/23 Mcg = 1000 Iu)] Sacubitril/Valsartan [Entresto 49 1 tab PO BID 09/27/23 09/27/23 mg-51 mg Tablet] carvediloL [Coreg] 6.25 mg PO BID 09/27/23 09/27/23 Previous Rx's Medication Instructions Recorded Spironolactone 25 mg PO DAILY #90 tab 07/01/22 Allergies Allergy/AdvReac Type Severity Reaction Status Date / Time No Known Allergies Allergy Verified 09/27/23 15:46 Review of Systems ROS Statement: Those systems with pertinent positive or pertinent negative responses have been documented in the HPI. ROS Other: All systems not noted in ROS Statement are negative. Past Medical History Past Medical History: Atrial Fibrillation, Hyperlipidemia, Hypertension Additional Past Medical History / Comment(s): HAS PREVIOUS EPISODE OF AFIB see dr laura's H & P History of Any Multi-Drug Resistant Organisms: None Reported Past Surgical History: Heart Catheterization, Joint Replacement, Tonsillectomy Additional Past Surgical History / Comment(s): BILATERAL HIP REPLACEMENTS cardioversion 06/2022 Past Anesthesia/Blood Transfusion Reactions: No Reported Reaction Additional Past Anesthesia/Blood Transfusion Reaction / Comment(s): no blood tx hx Past Psychological History: No Psychological Hx Reported Smoking Status: Former smoker Past Alcohol Use History: Occasional Past Drug Use History: None Reported - Past Family History Mother Family Medical History: No Reported History Father Family Medical History: Myocardial Infarction ([place]) Additional Family Medical History / Comment(s): FATAL [place] IN HIS 30'S General Exam - General Exam Comments Initial Comments: GENERAL: Patient is well-developed and well-nourished. Patient is nontoxic and well- hydrated and is in mild distress. ENT: Neck is soft and supple. No significant lymphadenopathy is noted. Oropharynx is clear. Moist mucous membranes. Neck has full range of motion without eliciting any pain. EYES: The sclera were anicteric and conjunctiva were pink and moist. Extraocular movements were intact and pupils were equal round and reactive to light. Eyelids were unremarkable. PULMONARY: Unlabored respirations. Good breath sounds bilaterally. No audible rales rhonchi or wheezing was noted. CARDIOVASCULAR: There is a regular rate and rhythm without any murmurs gallops or rubs. ABDOMEN: Soft and nontender with normal bowel sounds. SKIN: Skin is clear with no lesions or rashes and otherwise unremarkable. NEUROLOGIC: Patient is alert and oriented x3. Cranial nerves II through XII are grossly intact. Motor and sensory are also intact. Normal speech, volume and content. Symmetrical smile. MUSCULOSKELETAL: Normal extremities with adequate strength and full range of motion. No lower extremity swelling or edema. No calf tenderness. LYMPHATICS: No significant lymphadenopathy is noted PSYCHIATRIC: Normal psychiatric evaluation. Course Vital Signs 09/27/23 09/27/23 09/27/23 14:58 15:01 16:01 Temperature 97.9 F Pulse Rate 81 80 79 Respiratory 18 18 16 Rate Blood Pressure 120/81 131/95 O2 Sat by Pulse 97 95 Oximetry 09/27/23 17:01 Temperature Pulse Rate 80 Respiratory 16 Rate Blood Pressure 112/75 O2 Sat by Pulse 98 Oximetry Medical Decision Making - Medical Decision Making EKG is interpreted by myself. EKG shows a sinus rhythm at 80 bpm parables 197 QRS is 122 QT interval 374 QTc is 410. Patient's EKG shows no ST segment ovation or depression. Was pt. sent in by a medical professional or institution (MELANI Armenta, [employer], urgent care, hospital, or correction...) When possible be specific @ -No Did you speak to anyone other than the patient for history (EMS, parent, family, police, friend...)? What history was obtained from this source @ -No Did you review nursing and triage notes (agree or disagree)? Why? @ -I reviewed and agree with nursing and triage notes Were old charts reviewed (outside hosp., previous admission, EMS record, old EKG, old radiological studies, urgent care reports/EKG's, correction records)? Report findings @ -No old charts were reviewed Differential Diagnosis (chest pain, altered mental status, abdominal pain women, abdominal pain men, vaginal bleeding, weakness, fever, dyspnea, syncope, headache, dizziness, GI bleed, back pain, seizure, CVA, palpatations, mental health, musculoskeletal)? @ -Differential Chest Pain: Stable Angina, Unstable Angina, STEMI, NSTEMI Aortic Dissection, Pneumothorax, Musculoskeletal, Esophageal Spasm GERD, Cholecystitis, Pancreatitis, Zoster, this is not meant to be an all-inclusive list. EKG interpreted by me (3pts min.). @ -As above X-rays interpreted by me (1pt min.). @ -Chest x-ray shows no acute normality CT interpreted by me (1pt min.). @ -None done U/S interpreted by me (1pt. min.). @ -None done What testing was considered but not performed or refused? (CT, X-rays, U/S, labs)? Why? @ -None What meds were considered but not given or refused? Why? @ -None Did you discuss the management of the patient with other professionals (professionals i.e. MELANI Armenta, [employer], lab, RT, psych nurse, social staff worker, door serviceman, teacher, flight deck officer, case making machine operator)? Give summary @ -I spoke with Dr. Rosales agreed to admit the patient Was smoking cessation discussed for >3mins.? @ -No Was critical care preformed (if so, how long)? @ -No Were there social determinants of health that impacted care today? How? (Homelessness, low income, unemployed, alcoholism, drug addiction, transportation, low edu. Level, literacy, decrease access to med. care, [facility], rehab)? @ -No Was there de-escalation of care discussed even if they declined (Discuss DNR or withdrawal of care, Hospice)? DNR status @ -No What co-morbidities impacted this encounter? (DM, HTN, Smoking, COPD, CAD, Cance r, CVA, ARF, Chemo, Hep., AIDS, mental health diagnosis, sleep apnea, morbid obesity)? @ -None Was patient admitted / discharged? Hospital course, mention meds given and route, prescriptions, significant lab abnormalities, going to OR and other pertinent info. @ -Patient was given aspirin and nitroglycerin ointment and patient stated he felt as though that helped with her chest pain. Patient's lab work was all within normal limits. I spoke with Dr. Rosales agreed to admit the patient admit the patient I wrote admitting orders and consult cardiology. Undiagnosed new problem with uncertain prognosis? @ -No Drug Therapy requiring intensive monitoring for toxicity (Heparin, Nitro, Insulin, Cardizem)? @ -No Were any procedures done? @ -No Diagnosis/symptom? @ -Chest Acute, or Chronic, or Acute on Chronic? @ -Acute Uncomplicated (without systemic symptoms) or Complicated (systemic symptoms)? @ -Complicated Side effects of treatment? @ -No Exacerbation, Progression, or Severe Exacerbation? @ -No Poses a threat to life or bodily function? How? (Chest pain, [place], [place], pneumonia, PE, COPD, DKA, ARF, appy, cholecystitis, CVA, Diverticulitis, Homicidal, Suicidal, threat to staff... and all critical care pts) @ -Yes this could lead to an VA and endorgan dysfunction - Lab Data Result diagrams: 09/27/23 15:17 09/27/23 15:17 Lab Results 09/27/23 09/27/23 09/27/23 Range/Units 15:17 15:17 15:17 WBC 12.4 H (3.8-10.6) k/uL RBC 4.81 (4.30-5.90) m/uL Hgb 15.1 (13.0-17.5) gm/dL Hct 45.2 (39.0-53.0) % MCV 94.1 (80.0-100.0) fL MCH 31.4 (25.0-35.0) pg MCHC 33.4 (31.0-37.0) g/dL RDW 12.7 (11.5-15.5) % Plt Count 221 (150-450) k/uL MPV 7.1 Neutrophils % 74 % Lymphocytes % 18 % Monocytes % 5 % Eosinophils % 1 % Basophils % 0 % Neutrophils # 9.1 H (1.3-7.7) k/uL Lymphocytes # 2.3 (1.0-4.8) k/uL Monocytes # 0.6 (0-1.0) k/uL Eosinophils # 0.1 (0-0.7) k/uL Basophils # 0.0 (0-0.2) k/uL PT 15.6 H (10.0-12.5) sec INR 1.5 H (<1.2) APTT 35.9 H (22.0-30.0) sec Sodium 136 L (137-145) mmol/L Potassium 4.4 (3.5-5.1) mmol/L Chloride 104 (98-107) mmol/L Carbon Dioxide 23 (22-30) mmol/L Anion Gap 9 mmol/L BUN 20 (9-20) mg/dL Creatinine 0.89 (0.66-1.25) mg/dL Est GFR (CKD-EPI)AfAm >90 (>60 ml/min/1.73 sqM) Est GFR (CKD-EPI)NonAf >90 (>60 ml/min/1.73 sqM) Glucose 98 (74-99) mg/dL Calcium 9.9 (8.4-10.2) mg/dL Magnesium 1.9 (1.6-2.3) mg/dL Total Bilirubin 1.1 (0.2-1.3) mg/dL AST 39 (17-59) U/L ALT 46 (4-49) U/L Alkaline Phosphatase 103 (38-126) U/L Troponin I (0.000-0.034) ng/mL Total Protein 8.3 H (6.3-8.2) g/dL Albumin 4.8 (3.5-5.0) g/dL 04/23/24 Range/Units 15:17 WBC (3.8-10.6) k/uL RBC (4.30-5.90) m/uL Hgb (13.0-17.5) gm/dL Hct (39.0-53.0) % MCV (80.0-100.0) fL MCH (25.0-35.0) pg MCHC (31.0-37.0) g/dL RDW (11.5-15.5) % Plt Count (150-450) k/uL MPV Neutrophils % % Lymphocytes % % Monocytes % % Eosinophils % % Basophils % % Neutrophils # (1.3-7.7) k/uL Lymphocytes # (1.0-4.8) k/uL Monocytes # (0-1.0) k/uL Eosinophils # (0-0.7) k/uL Basophils # (0-0.2) k/uL PT (10.0-12.5) sec INR (<1.2) APTT (22.0-30.0) sec Sodium (137-145) mmol/L Potassium (3.5-5.1) mmol/L Chloride (98-107) mmol/L Carbon Dioxide (22-30) mmol/L Anion Gap mmol/L BUN (9-20) mg/dL Creatinine (0.66-1.25) mg/dL Est GFR (CKD-EPI)AfAm (>60 ml/min/1.73 sqM) Est GFR (CKD-EPI)NonAf (>60 ml/min/1.73 sqM) Glucose (74-99) mg/dL Calcium (8.4-10.2) mg/dL Magnesium (1.6-2.3) mg/dL Total Bilirubin (0.2-1.3) mg/dL AST (17-59) U/L ALT (4-49) U/L Alkaline Phosphatase (38-126) U/L Troponin I <0.012 (0.000-0.034) ng/mL Total Protein (6.3-8.2) g/dL Albumin (3.5-5.0) g/dL Disposition Clinical Impression: Chest pain Disposition: ADMITTED IP TO THIS [facility] Referrals: Talha Magallanes DO [Primary Care Provider] - 1-2 days Time of Disposition: 18:37
--- NOTE | 2023-09-27 16:24 | XR ---
EXAMINATION TYPE: XR chest 2V DATE OF EXAM: 09/27/2023 COMPARISON: 10/25/2022 INDICATION: Chest pain TECHNIQUE: Frontal and lateral views of the chest are obtained. FINDINGS: The heart size is enlarged. Pacemaker overlies left chest. The pulmonary vasculature is normal. The lungs are clear. IMPRESSION: 1. No acute pulmonary process.
[2023-09-27] MEDS: ASPIRIN 81 MG PO STA (17:02)
[2023-09-27] MEDS: NITROGLYCERIN OINT 1 INCH/GM PACKET TOPICAL STA (17:02)
[2023-09-27] MEDS ORDERED: NITROGLYCERIN SL TABS 0.4 MG TAB SUBLINGUAL PRN (18:37)
[2023-09-27] MEDS ORDERED: ONDANSETRON 4 MG/2 ML VIAL IVP PRN (20:47)
[2023-09-27] MEDS ORDERED: LACTULOSE 20 GM/30 ML CUP PO PRN (20:47)
[2023-09-27] MEDS ORDERED: MELATONIN 3 MG TABLET PO PRN (20:47)
[2023-09-27] MEDS ORDERED: ACETAMINOPHEN TAB 325 MG TAB PO PRN (20:47)
[2023-09-27] MEDS ORDERED: LORazepam 0.5 MG TAB PO PRN (20:47)
[2023-09-27] MEDS ORDERED: NALOXONE 0.4 MG/ML 1 ML VIAL IV PRN (20:47)
[2023-09-27] MEDS ORDERED: CALCIUM CARBONATE 500 MG CHEWABLE PO PRN (20:47)
[2023-09-27] MEDS: carvediloL 6.25 MG TAB PO SCH (22:20)
[2023-09-27] MEDS: SACUBITRIL/VALSARTAN 49 MG-51 MG TABLET PO SCH (22:20)
--- NOTE | 2023-09-27 22:31 | P.HPIM ---
History of Present Illness H&P Date: 09/27/23 Chief Complaint: Chest pain This is a pleasant 63-year-old patient follows with Dr. Magallanes. Follows with seo assistant Dr. Kashmir Belcher. September 2022 patient underwent a cardiac catheterization. Was found to have minimal disease. 10 to 20%. Patient has longstanding atrial flutter fibrillation. Has known EF of 25%. Patient was at work today doing his usual job which is light. Developed upper chest sharp pain. Increase his breathing. [place] slightly dizzy. No shortness of breath. No perspiration. Did feel more tired than usual. Decided to come in. 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 No smoking. No alcohol. . Physical examination: VITAL SIGNS: Afebrile, 77, 18, 134/73, 100% room air GENERAL: BMI 35.4, reclining bed awake comfortable. EYES: Pupils equal. Conjunctiva maribeth l. HEENT: External appearance of nose and ears normal, oral cavity grossly normal. NECK: JVD not raised; masses not palpable. HEART: First and second heart sounds are normal; no edema. LUNGS: Respiratory rate normal; clear to auscultation. ABDOMEN: Soft, nontender, liver spleen not palpable, no masses palpable. PSYCH: Alert and oriented x3; mood and affect maribeth l. MUSCULOSKELETAL:No Clubbing/cyanosis;muscles-grossly intact NEUROLOGICAL: Cranial nerves grossly intact; no facial asymmetry, power and sensation grossly intact. LYMPHATICS: No lymph nodes palpable in the axilla and neck INVESTIGATIONS, reviewed in the clinical context: White count 12.4 hemoglobin 15.1 platelets 221 sodium 136 potassium 4.4 BUN 20 creatinine 0.89 Troponin I less than 0.012 x 3 EKG tracing personally reviewed by me-normal sinus rhythm. Poor R wave progression anterior leads. Chest x-ray film personally reviewed by me-pacemaker./AICD. Cardiomegaly Assessment plan: -Anterior chest wall pain. Sharp. Some changes with deep breathing. Patient had a cardiac catheterization just over a year ago. Was found to have minimal disease.: Possibly musculoskeletal Troponins negative. Telemetry. Consult cardiology. -Chronic congestive heart failure EF 25%. Cause unknown. Entresto. Coreg. Aldactone -Persistent atrial fibrillation Coreg. 6.25 twice daily. Xarelto. Care was discussed with the patient at the bedside. Cardiology consulted. PE is in the differential. Patient already on Xarelto. Will check bilateral ultrasound to rule out DVT. Past Medical History Past Medical History: Atrial Fibrillation, Hyperlipidemia, Hypertension Additional Past Medical History / Comment(s): HAS PREVIOUS EPISODE OF AFIB see dr laura's H & P History of Any Multi-Drug Resistant Organisms: None Reported Past Surgical History: Heart Catheterization, Joint Replacement, Tonsillectomy Additional Past Surgical History / Comment(s): BILATERAL HIP REPLACEMENTS cardioversion 06/2022 Past Anesthesia/Blood Transfusion Reactions: No Reported Reaction Additional Past Anesthesia/Blood Transfusion Reaction / Comment(s): no blood tx hx Past Psychological History: No Psychological Hx Reported Smoking Status: Former smoker Past Alcohol Use History: Occasional Past Drug Use History: None Reported - Past Family History Mother Family Medical History: No Reported History Father Family Medical History: Myocardial Infarction ([place]) Additional Family Medical History / Comment(s): FATAL [place] IN HIS 30'S Medications and Allergies Home Medications Medication Instructions Recorded Confirmed Type Atorvastatin [Lipitor] 40 mg PO DAILY 11/04/16 09/27/23 History Multivitamins, Thera [Multivitamin 1 tab PO DAILY 06/28/22 09/27/23 History (formulary)] Rivaroxaban [Xarelto] 20 mg PO DAILY 06/28/22 09/27/23 History Spironolactone 25 mg PO DAILY #90 tab 07/01/22 09/27/23 Rx Cholecalciferol [Vitamin D3 (25 25 mcg PO DAILY 09/15/22 09/27/23 History Mcg = 1000 Iu)] Sacubitril/Valsartan [Entresto 49 1 tab PO BID 09/27/23 09/27/23 History mg-51 mg Tablet] carvediloL [Coreg] 6.25 mg PO BID 09/27/23 09/27/23 History Allergies Allergy/AdvReac Type Severity Reaction Status Date / Time No Known Allergies Allergy Verified 09/27/23 15:46 Physical Exam Vitals: Vital Signs Temp Pulse Pulse Resp BP Pulse Ox 09/27/23 22:20 77 18 134/73 100 09/27/23 20:30 71 18 113/70 09/27/23 20:00 78 16 117/83 09/27/23 19:30 80 16 117/83 09/27/23 19:00 75 18 101/68 09/27/23 18:48 74 09/27/23 18:00 81 20 101/62 98 09/27/23 17:30 80 112/75 09/27/23 17:01 80 16 112/75 98 09/27/23 17:00 79 113/77 09/27/23 16:30 86 113/77 09/27/23 16:01 79 16 09/27/23 16:00 79 131/95 96 09/27/23 15:30 79 131/95 95 09/27/23 15:21 97 09/27/23 15:01 80 18 131/95 95 09/27/23 14:58 97.9 F 81 18 120/81 97 Intake and Output 09/27/23 09/27/23 09/27/23 06:59 14:59 22:59 Other: Weight 108.862 kg Results CBC & Chem 7: 09/27/23 15:17 09/27/23 15:17 Labs: Abnormal Lab Results - Last 24 Hours (Table) 09/27/23 09/27/23 09/27/23 Range/Units 15:17 15:17 15:17 WBC 12.4 H (3.8-10.6) k/uL Neutrophils # 9.1 H (1.3-7.7) k/uL PT 15.6 H (10.0-12.5) sec INR 1.5 H (<1.2) APTT 35.9 H (22.0-30.0) sec Sodium 136 L (137-145) mmol/L Total Protein 8.3 H (6.3-8.2) g/dL
--- NOTE | 2023-09-28 00:15 | US ---
EXAM: US Duplex Bilateral Lower Extremities Veins CLINICAL HISTORY: ITS.REASON US Reason: Rule out DVT TECHNIQUE: Real-time duplex ultrasound scan of the bilateral lower extremity veins integrating B-mode two-dimensional vascular structure, Doppler spectral analysis, color flow Doppler imaging and compression. 44 images COMPARISON: No relevant prior studies available. FINDINGS: Right deep veins: Unremarkable. No DVT in the right common femoral, femoral, proximal deep femoral, proximal calf or popliteal veins. The veins demonstrate normal color flow, are normally compressible, with normal phasic flow and/or augmentation response. Right superficial veins: Unremarkable. No thrombus in the visualized right saphenous veins. Left deep veins: Unremarkable. No DVT in the left common femoral, femoral, proximal deep femoral, proximal calf or popliteal veins. The veins demonstrate normal color flow, are normally compressible, with normal phasic flow and/or augmentation response. Left superficial veins: Unremarkable. No thrombus in the visualized left saphenous veins. Soft tissues: No acute findings. No popliteal cyst. IMPRESSION: No DVT
[2023-09-28] MEDS: NITROGLYCERIN OINT 1 INCH/GM PACKET TOPICAL SCH (05:06)
[2023-09-28 08:11] VITALS: RESP 16; TEMP 97.7
[2023-09-28] MEDS: SPIRONOLACTONE 25 MG TAB PO SCH (08:50)
[2023-09-28] MEDS: COLCHICINE 0.6 MG EACH PO SCH (08:50)
[2023-09-28] MEDS: ATORVASTATIN 40 MG TAB PO SCH (08:50)
[2023-09-28] MEDS: MULTIVITAMINS, THERA 1 EACH TAB PO SCH (08:50)
[2023-09-28] MEDS: RIVAROXABAN 20 MG TAB PO SCH (08:50)
[2023-09-28] MEDS ORDERED: ASPIRIN 325 MG TAB PO SCH (09:00)
[2023-09-28 10:51] LABS: Chol/HDL Ratio 3.48 Ratio; LDL Cholesterol,Calculated 76.8 mg/dL (0.0-131.0)
--- NOTE | 2023-09-28 11:09 | P.CRDCN ---
History of Present Illness History of present illness: HISTORY OF PRESENT ILLNESS: This is a 63-year-old male with a past medical history significant for nonischemic cardiomyopathy, persistent atrial fibrillation with pulmonary vein isolation, dual-chamber ICD, and pericarditis. Patient follows in the office with Dr. Gonzalez. We have been asked to see the patient in consultation for chest pain. Patient examined at the bedside. Patient states yesterday he woke up in the morning with a headache. He states that he began to have some pain in the middle of his chest. He states that he thought he was dehydrated and drink a few glasses of water with no improvement. He states the pain lasted for approximately 6 hours. He states the pain was worse with deep inspiration and felt like a stabbing sensation. He does report that the pain went away with nitroglycerin. DIAGNOSTICS: - EKG reveals sinus mechanism with no signs of acute ischemia. - Chest xray negative for acute process. - Laboratory data: WBC 12.4. Hemoglobin 15.1. Platelet count 221. Sodium 136. Potassium 4.4. BUN 20. Creatinine 0.89. Magnesium 1.9. Troponin negative x 3. - Current home cardiac medications include carvedilol 6.25 mg twice a day, Lipitor 40 mg daily, Entresto 49-51 mg twice a day, spironolactone 25 mg daily, Xarelto 20 mg daily. - Most recent echocardiogram obtained in August 2022 revealed ejection fraction 20 to 25%, global hypokinesis, inferior septal dyskinesia - Cardiac catheterization history: September 2022 revealing relatively normal c oronary arteries other than mild luminal irregularities of the LAD and normal left-sided filling pressures REVIEW OF SYSTEMS: At the time of my exam: CONSTITUTIONAL: Denies fever or chills. HEENT: Denies blurred vision, vision changes, or eye pain. Denies hemoptysis CARDIOVASCULAR: Denies chest pain. Denies orthopnea. Denies PND. Denies palpitations RESPIRATORY: Denies shortness of breath. GASTROINTESTINAL: Denies abdominal pain. Denies nausea or vomiting. HEMATOLOGIC: Denies bleeding disorders. GENITOURINARY: Denies any blood in urine. SKIN: Denies pruitis. Denies rash. PHYSICAL EXAM: VITAL SIGNS: Reviewed. GENERAL: Well-developed in no acute distress. HEENT: Head is normocephalic. Pupils are equal, round. Sclerae anicteric. Mucous membranes of the mouth are moist. Neck supple. No JVD or thyromegaly LUNGS: Respirations even and unlabored. Lungs essentially clear to auscultation bilaterally. HEART: Regular rate and rhythm. S1 and S2 heard. ABDOMEN: Soft. Nondistended. Nontender. EXTREMITIES: Normal range of motion. No clubbing or cyanosis. Peripheral pulses intact. No lower extremity edema NEUROLOGIC: Awake and alert. Oriented x 3. ASSESSMENT: Chest pain, troponin negative x 3, possible pericarditis History of nonischemic cardiomyopathy History of atrial fibrillation with pulmonary vein isolation, currently maintaining sinus mechanism History of dual-chamber ICD implantation History of pericarditis PLAN: No need to obtain echocardiogram Check CRP Add colchicine 0.6 mg daily for possible recurrent pericarditis Continue additional cardiac medications Patient may be discharged home today from a cardiac standpoint and follow-up in the office with Dr. Gonzalez Nurse practitioner note has been reviewed by physician. Signing provider agrees with the documented findings, assessment, and plan of care documented by [employer]GER as a scribe. Past Medical History Past Medical History: Atrial Fibrillation, Hyperlipidemia, Hypertension Additional Past Medical History / Comment(s): HAS PREVIOUS EPISODE OF AFIB see dr gonzalez's H & P History of Any Multi-Drug Resistant Organisms: None Reported Past Surgical History: AICD, Cardiac Ablation, Heart Catheterization, Joint Replacement, Pacemaker, Tonsillectomy Additional Past Surgical History / Comment(s): BILATERAL HIP REPLACEMENTS cardioversion 06/2022, cardioversion 2022, medtronic AICD Past Anesthesia/Blood Transfusion Reactions: No Reported Reaction Additional Past Anesthesia/Blood Transfusion Reaction / Comment(s): no blood tx hx Type of Cardiac Device: AICD Device Placement Date:: 2022 Past Psychological History: No Psychological Hx Reported Smoking Status: Former smoker Past Alcohol Use History: Occasional Additional Past Alcohol Use History / Comment(s): QUIT SMOKING 2005 Past Drug Use History: None Reported - Past Family History Mother Family Medical History: No Reported History Father Family Medical History: Myocardial Infarction ([place]) Additional Family Medical History / Comment(s): FATAL [place] IN HIS 30'S Medications and Allergies Home Medications Medication Instructions Recorded Confirmed Type Atorvastatin [Lipitor] 40 mg PO DAILY 11/04/16 09/27/23 History Multivitamins, Thera [Multivitamin 1 tab PO DAILY 06/28/22 09/27/23 History (formulary)] Rivaroxaban [Xarelto] 20 mg PO DAILY 06/28/22 09/27/23 History Spironolactone 25 mg PO DAILY #90 tab 07/01/22 09/27/23 Rx Cholecalciferol [Vitamin D3 (25 25 mcg PO DAILY 09/15/22 09/27/23 History Mcg = 1000 Iu)] Sacubitril/Valsartan [Entresto 49 1 tab PO BID 09/27/23 09/27/23 History mg-51 mg Tablet] carvediloL [Coreg] 6.25 mg PO BID 09/27/23 09/27/23 History Colchicine [Colcrys] 0.6 mg PO DAILY #14 each 09/28/23 Rx Allergies Allergy/AdvReac Type Severity Reaction Status Date / Time No Known Allergies Allergy Verified 09/27/23 15:46 Physical Exam Vitals: Vital Signs Temp Pulse Pulse Pulse Resp BP BP 09/28/23 07:20 97.7 F 66 16 111/69 09/28/23 01:52 97.6 F 61 15 117/77 09/28/23 01:00 69 18 104/65 09/27/23 22:20 77 18 134/73 09/27/23 20:30 71 18 113/70 09/27/23 20:00 78 16 117/83 09/27/23 19:30 80 16 117/83 09/27/23 19:00 75 18 101/68 09/27/23 18:48 74 09/27/23 18:00 81 20 101/62 09/27/23 17:30 80 112/75 09/27/23 17:01 80 16 112/75 09/27/23 17:00 79 113/77 09/27/23 16:30 86 113/77 09/27/23 16:01 79 16 09/27/23 16:00 79 131/95 09/27/23 15:30 79 131/95 09/27/23 15:21 09/27/23 15:01 80 18 131/95 09/27/23 14:58 97.9 F 81 18 120/81 Pulse Ox 09/28/23 07:20 96 09/28/23 01:52 98 09/28/23 01:00 99 09/27/23 22:20 100 09/27/23 20:30 09/27/23 20:00 09/27/23 19:30 09/27/23 19:00 09/27/23 18:48 09/27/23 18:00 98 09/27/23 17:30 09/27/23 17:01 98 09/27/23 17:00 09/27/23 16:30 09/27/23 16:01 09/27/23 16:00 96 09/27/23 15:30 95 09/27/23 15:21 97 09/27/23 15:01 95 09/27/23 14:58 97 Intake and Output 09/27/23 09/28/23 09/28/23 22:59 06:59 14:59 Other: # Voids 1 Weight 108.862 kg Results 09/27/23 15:17 09/27/23 15:17 Cardiac Enzymes 09/27/23 09/27/23 09/27/23 Range/Units 15:17 15:17 18:59 AST 39 (17-59) U/L Troponin I <0.012 <0.012 (0.000-0.034) ng/mL 09/27/23 Range/Units 21:34 AST (17-59) U/L Troponin I <0.012 (0.000-0.034) ng/mL Coagulation 09/27/23 Range/Units 15:17 PT 15.6 H (10.0-12.5) sec APTT 35.9 H (22.0-30.0) sec CBC 09/27/23 Range/Units 15:17 WBC 12.4 H (3.8-10.6) k/uL RBC 4.81 (4.30-5.90) m/uL Hgb 15.1 (13.0-17.5) gm/dL Hct 45.2 (39.0-53.0) % Plt Count 221 (150-450) k/uL Comprehensive Metabolic Panel 09/27/23 Range/Units 15:17 Sodium 136 L (137-145) mmol/L Potassium 4.4 (3.5-5.1) mmol/L Chloride 104 (98-107) mmol/L Carbon Dioxide 23 (22-30) mmol/L BUN 20 (9-20) mg/dL Creatinine 0.89 (0.66-1.25) mg/dL Glucose 98 (74-99) mg/dL Calcium 9.9 (8.4-10.2) mg/dL AST 39 (17-59) U/L ALT 46 (4-49) U/L Alkaline Phosphatase 103 (38-126) U/L Total Protein 8.3 H (6.3-8.2) g/dL Albumin 4.8 (3.5-5.0) g/dL Current Medications Generic Name Dose Route Start Last Admin Trade Name Freq PRN Reason Stop Dose Admin Acetaminophen 650 mg 09/27/23 20:47 Acetaminophen Tab 325 Mg Tab PO Q6HR PRN Mild Pain or Fever > 100.5 Aspirin 325 mg 09/28/23 09:00 Aspirin 325 Mg Tab PO DAILY [facility] Atorvastatin Calcium 40 mg 09/28/23 09:00 Atorvastatin 40 Mg Tab PO DAILY [facility] Calcium Carbonate/Glycine 1,000 mg 09/27/23 20:47 Calcium Carbonate 500 Mg Chewable PO Q4HR PRN Dyspepsia Carvedilol 6.25 mg 09/27/23 21:00 09/27/23 22:20 Carvedilol 6.25 Mg Tab PO 6.25 mg AC-BID [facility] Administration Lactulose 20 gm 09/27/23 20:47 Lactulose 20 Gm/30 Ml Cup PO DAILY PRN Constipation Lorazepam 0.5 mg 09/27/23 20:47 Lorazepam 0.5 Mg Tab PO Q6HR PRN Anxiety Melatonin 3 mg 09/27/23 20:47 Melatonin 3 Mg Tablet PO HS PRN Insomnia Multivitamins 1 each 09/28/23 09:00 Multivitamins, Thera 1 Each Tab PO DAILY [facility] Naloxone HCl 0.2 mg 09/27/23 20:47 Naloxone 0.4 Mg/Ml 1 Ml Vial IV Q2M PRN Opioid Reversal Nitroglycerin 0.4 mg 09/27/23 18:37 Nitroglycerin Sl Tabs 0.4 Mg Tab SUBLINGUAL Q5M PRN Chest Pain Nitroglycerin 1 inch 09/28/23 00:00 09/28/23 05:56 Nitroglycerin Oint 1 Inch/Gm Packet TOPICAL Not Given Q6HR [facility] Ondansetron HCl 4 mg 09/27/23 20:47 Ondansetron 4 Mg/2 Ml Vial IVP Q8HR PRN Nausea And Vomiting Rivaroxaban 20 mg 09/28/23 09:00 Rivaroxaban 20 Mg Tab PO DAILY SHWETHA Protocol Sacubitril/Valsartan 1 each 09/27/23 21:00 09/27/23 22:20 Sacubitril/Valsartan 49 Mg-51 Mg Tablet PO 1 each BID SHWETHA Administration Spironolactone 25 mg 09/28/23 09:00 Spironolactone 25 Mg Tab PO DAILY [facility] Intake and Output 09/27/23 09/28/23 09/28/23 22:59 06:59 14:59 Other: # Voids 1 Weight 108.862 kg 09/27/23 15:17 09/27/23 15:17
[2023-09-28 11:43] VITALS: BP 97/64; PULSE 69
--- NOTE | 2023-09-28 19:33 | P.DS ---
Providers Date of admission: 09/27/23 18:37 Expected date of discharge: 09/28/23 Attending physician: Luis Rosales Consults: 09/27/23 18:37 Consult Physician Urgent Consulting Provider: [facility] Consult Reason/Comments: Chest pain Do you want consulting provider notified?: Yes Primary care physician: [facility] Course: Chief Complaint: Chest pain This is a pleasant 63-year-old patient follows with Dr. Magallanes. Follows with recreation clerk Dr. Kashmir Belcher. September 2022 patient underwent a cardiac catheterization. Was found to have minimal disease. 10 to 20%. Patient has longstanding atrial flutter fibrillation. Has known EF of 25%. Patient was at work today doing his usual job which is light. Developed upper chest sharp pain. Increase his breathing. Jay slightly dizzy. No shortness of breath. No perspiration. Did feel more tired than usual. Decided to come in. September 27: Seen by cardiology earlier today. Jay to be some pericarditis. No chest pain anymore this morning. Colchicine added by cardiology. Patient did walk around the hallway. No further cardiac symptoms. Cleared by discharge. Follow-up with Dr. Chidi Laura outpatient. 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 No smoking. No alcohol. . Physical examination: VITAL SIGNS: 97.7, 69, 16, 97 x 64, 98% room air GENERAL: Comfortable EYES: Pupils equal. Conjunctiva maribeth l. HEENT: External appearance of nose and ears normal, oral cavity grossly normal. NECK: JVD not raised; masses not palpable. HEART: First and second heart sounds are normal; no edema. LUNGS: Respiratory rate normal; clear to auscultation. ABDOMEN: Soft, nontender, liver spleen not palpable, no masses palpable. PSYCH: Alert and oriented x3; mood and affect maribeth l. MUSCULOSKELETAL:No Clubbing/cyanosis;muscles-grossly intact INVESTIGATIONS, reviewed in the clinical context: Bilateral lower extremity Doppler ultrasound: Negative for DVT bilateral CRP 4.3 LDL 76.8 White count 12.4 hemoglobin 15.1 platelets 221 sodium 136 potassium 4.4 BUN 20 creatinine 0.89 Troponin I less than 0.012 x 3 EKG tracing personally reviewed by me-normal sinus rhythm. Poor R wave progression anterior leads. Chest x-ray film personally reviewed by me-pacemaker./AICD. Cardiomegaly Assessment plan: -Possible pericarditis, acute Seen by Dr. Kashmir Belcher from cardiology. Colchicine added. Will follow-up in the office. -Chronic congestive heart failure EF 25%. Cause unknown. Entresto. Coreg. Aldactone -Persistent atrial fibrillation Coreg. 6.25 twice daily. Xarelto. Disposition: Home Past Medical History Past Medical History: Atrial Fibrillation, Hyperlipidemia, Hypertension Additional Past Medical History / Comment(s): HAS PREVIOUS EPISODE OF AFIB see dr laura's H & P History of Any Multi-Drug Resistant Organisms: None Reported Past Surgical History: Heart Catheterization, Joint Replacement, Tonsillectomy Additional Past Surgical History / Comment(s): BILATERAL HIP REPLACEMENTS cardioversion 06/2022 Past Anesthesia/Blood Transfusion Reactions: No Reported Reaction Additional Past Anesthesia/Blood Transfusion Reaction / Comment(s): no blood tx hx Past Psychological History: No Psychological Hx Reported Smoking Status: Former smoker Past Alcohol Use History: Occasional Past Drug Use History: None Reported Plan - Discharge Summary Discharge Rx Participant: No New Discharge Prescriptions: New Colchicine [Colcrys] 0.6 mg PO DAILY #14 each Continue Atorvastatin [Lipitor] 40 mg PO DAILY Multivitamins, Thera [Multivitamin (formulary)] 1 tab PO DAILY Rivaroxaban [Xarelto] 20 mg PO DAILY Spironolactone 25 mg PO DAILY #90 tab Cholecalciferol [Vitamin D3 (25 Mcg = 1000 Iu)] 25 mcg PO DAILY carvediloL [Coreg] 6.25 mg PO BID Sacubitril/Valsartan [Entresto 49 mg-51 mg Tablet] 1 tab PO BID Discharge Medication List Atorvastatin [Lipitor] 40 mg PO DAILY 11/04/16 [History] Multivitamins, Thera [Multivitamin (formulary)] 1 tab PO DAILY 06/28/22 [History] Rivaroxaban [Xarelto] 20 mg PO DAILY 06/28/22 [History] Spironolactone 25 mg PO DAILY #90 tab 07/01/22 [Rx] Cholecalciferol [Vitamin D3 (25 Mcg = 1000 Iu)] 25 mcg PO DAILY 09/15/22 [History] Sacubitril/Valsartan [Entresto 49 mg-51 mg Tablet] 1 tab PO BID 09/27/23 [History] carvediloL [Coreg] 6.25 mg PO BID 09/27/23 [History] Colchicine [Colcrys] 0.6 mg PO DAILY #14 each 09/28/23 [Rx] Follow up Appointment(s)/Referral(s): Kashmir Laura MD [STAFF PHYSICIAN] - 10/05/23 11:00 am Talha Magallanes DO [Primary Care Provider] - 1-2 days Patient Instructions/Handouts: Chest Pain (DC) Discharge Disposition: HOME SELF-CARE
== END 2023-09-28 13:53 | disposition home or self-care (01) ==
LOC: EC 14:39 → 6NMEDSUR 18:37
PROVIDERS: ADMIT Hospitalist; ATTEND Hospitalist
DX: R07.89 Other chest pain (principal); I48.91 Unspecified atrial fibrillation; E78.5 Hyperlipidemia, unspecified; I11.0 Hypertensive heart disease with heart failure; I50.9 Heart failure, unspecified; Z79.01 Long term (current) use of anticoagulants; Z82.49 Family history of ischemic heart disease and other diseases of the circulatory system; Z95.810 Presence of automatic (implantable) cardiac defibrillator; Z96.643 Presence of artificial hip joint, bilateral; Z79.899 Other long term (current) drug therapy
CPT/HCPCS: 99285; 36415; 93005; 80061; 80053; 83735; 84484; 85025; 85610; 85730; 86140; 71046; 93970; G0378 ×2